=== PATIENT | female | born 1965 | race African-American/Black ===

== ENCOUNTER 2016-07-12 00:36 | Observation (INO) | payer OTHER, BC ==
[~2016-07-12] VITALS: Ht 162.6 cm; Wt 90.3 kg
--- NOTE | ~2016-07-12 | EKG ---
[address] [place] [address] ELECTROCARDIOGRAM REPORT Name: MATT CALIX Room #: 423-1 ADM IN M.R.#: [id number] Admission: 07/12/16 Attend Phys: Jose R Jansen MD Discharge: Date of : 69 Report #: [id number] THIS REPORT FOR: //name// [facility] ED Test Date: 2016-07-12 Test Time: 00:49:21 Pat Name: MATT CALIX Department: Room: [facility] Gender: F Occupational Therapy Assist: Oralia HELMS : 1965 Requested By: Naz Chavez Order Number: [id number] MD: Brett Cortez Measurements Intervals [place] Rate: 64 P: -17 [place]: 152 QRS: -11 QRSD: 81 T: 21 QT: 413 QTc: 426 Interpretive Statements Sinus rhythm Poor R wave progression Compared to ECG 04/05/2015 16:51:18 No significant change was found Electronically Signed On 07-12-2016 8:07:37 CDT by Brett Cortez [email or web address] <ELECTRONICALLY SIGNED> By: Brett Cortez MD, [facility] 07/12/16 0807 0049 0049 Brett Cortez MD, [facility] /EPI
--- NOTE | ~2016-07-12 | HC ---
[facility] [place] [address] CONSULTATION Name: MATT CALIX Abril Room #: 423-1 ADM IN .R.#: [id number] Admission: 07/12/16 Attend Phys: Jose R Jansen MD Discharge: Date of : 69 Report #: [id number] THIS REPORT FOR: //name// CC: [facility] physician/PCP Jose R Jansen DATE OF SERVICE: 07/13/2016 HISTORY OF PRESENT ILLNESS: This is a 51-year-old female patient without findings of coronary artery disease, presented to the Emergency Room with evaluation of chest discomfort. The patient was sitting and watching TV without any significant issues when she developed this retrosternal tightness sensation. It was not associated with dyspnea and diaphoresis and she describes it as being at least 5 or 6/10. The patient then was going to go lay down and when she stood up she became lightheaded, although did not have syncope or near syncope. She rested and her discomfort went away. Later, the discomfort returned and it did not resolve on its own. These again occurred at rest. The patient is not very active, but she does bring groceries in and does walk without any subsequent symptomatology. She stated that when she had this discomfort she tried to take and it did not affect her in anyway she performed. She presented to the Emergency Room, was given morphine, which made the symptoms worse according to her. She denies any prior exertional chest pain, pressure, tightness, heaviness, fullness or other symptomatology. She did not have any significant orthopnea or PND. No dependent or nondependent edema is described. She denies having any significant issues with hypertension, diabetes and is uncertain what her lipid profiles demonstrate. She denies any significant family history of premature cardiovascular disease. PAST MEDICAL HISTORY: Significant for: 1. Migraine headaches. 2. Gastroesophageal reflux disease. 3. History of seizures. PAST SURGICAL HISTORY: Tubal ligation. MEDICATIONS AT HOME: Meclizine, gabapentin, folic acid, Zyrtec, phenobarbital, vitamin D, probiotic, Keppra, has been on Lotrisone cream, Nexium, Ditropan, Paxil, Zoloft in the past. ALLERGIES: ASPIRIN, CODEINE, DOXYCYCLINE, IBUPROFEN, NAPROXEN, ALL NSAIDS, PENICILLIN, SULFA, TRIMETHOPRIM. SOCIAL HISTORY: The patient does not smoke, does not consume alcohol. Does not follow a particular exercise regimen or dietary restriction. Her UDAY heart score is 1. [address] [address] CONSULTATION Name: MATT CALIX Room #: [facility] IN [facility]#: [id number] Admission: 07/12/16 Attend Phys: Jose R Jansen MD Discharge: Date of : 69 Report #: [id number] Electrocardiogram normal sinus rhythm, nonspecific ST-T wave changes. Laboratory demonstrates a BUN and creatinine of 12 and 0.9 with a GFR of 81. H and H is 12.4 and 36.3 with a platelet count of 267,000. Radiologic demonstrates no acute process noted on chest x-ray. REVIEW OF SYSTEMS: Except for symptoms as previously mentioned and those commensurate with comorbid state, the 10-point review of system is negative. PHYSICAL EXAMINATION: GENERAL: A well-developed well-nourished female resting comfortably being in no acute distress. HEENT: Normocephalic, atraumatic. Pupils are equal, round, reactive to light and accommodation. Extraocular muscles are intact. Sclerae and conjunctivae are anicteric. NECK: JVD is normal. Carotid upstrokes are bilaterally symmetrical. No bruits are heard. No thyromegaly. No lymphadenopathy. LUNGS: Clear to auscultation. No wheezes, rhonchi or crackles. No CVA tenderness. CARDIAC: Demonstrates a regular rhythm. Normal first and second heart sounds. No ventricular or atrial gallops, no rubs noted. No murmurs. No lifts or heaves, PMI normal. ABDOMEN: Soft, nontender, nondistended. Normal bowel sounds. EXTREMITIES: Without cyanosis, clubbing or edema. Distal pulses are intact. DTR symmetrical. NEUROLOGIC: Cranial nerves 2-12 are grossly normal and symmetrical. PSYCHIATRIC: Alert, oriented with normal affect. SKIN: Warm and dry. IMPRESSION: 1. Atypical chest pain with very low risk of ischemic origin. 2. She has had negative enzymes and no significant abnormal EKG. In review of this, it is reasonable to proceed with outpatient perfusion scanning and evaluation. I discussed with the patient she is little bit concerned about this and we will defer to primary care. 3. Gastroesophageal reflux disease. She states this is different the one she had this before, but nonetheless she has not been on the medications recently. This may be a factor, may be an esophageal spasms etc. 4. History of migraine headaches. I doubt that this had anything to do with this and neither the seizures. I am not going to proceed with anything, only further evaluate from this aspect. <ELECTRONICALLY SIGNED> By: Josue Burciaga MD 07/14/16 1142 1946 [id number] Josue Burciaga MD /nt
[~2016-07-12 00:36] MED LIST: ANTIVERT25 MG PO; DETROL LA4 MG PO; DITROPAN XL10 M1 PO; FOLIC ACID1 MG; KEPPRA 500 MG500 M1 PO; LOTRISONE CREAM15 GM TP; MYRBETRIQ25 MG PO; NEURONTIN 400400 M1 PO; NEXIUM40 MG PO; NORCO 5-325 TA1 EACH PO; NORFLEX100 MG PO; PAXIL10 MG PO; PHENOBARBITAL15 MG PO; PROBIOTIC1 EAC1 PO; SKELAXIN 800 M800 M1 PO; TROSPIUM CHLORI60 MG PO; VITAMIN D3400 UNIT PO; ZOLOFT25 MG PO; ZYRTEC10 M2
[2016-07-12 00:39] VITALS: BP 123/75
[2016-07-12 01:18] LABS: ABSOLUTE NEUTROPHILS 2.1 thou/uL (1.4-8.2); BASOPHILS 1.2 % (0.0-2.0); HEMATOCRIT 36.3 % (37.0-47.0); HEMOGLOBIN 12.4 gm/dL (12.0-15.0); MANUAL DIFF NO; MCH 28.4 pg (26.0-34.0); MCHC 34.1 g/dL (28.0-37.0); MCV 83.3 fL (80.0-100.0); MONOCYTES 11.8 % (1.0-8.0); PLATELET COUNT 267 thou/uL (150-400); RBC 4.36 mil/uL (4.20-5.00); RDW 13.2 % (10.5-14.5); WBC 5.1 thou/uL (4.0-11.0)
[2016-07-12 01:24] LABS: ANION GAP 9 mmol/L (7-16); BUN 12 mg/dL (7-18); CALCIUM 9.5 mg/dL (8.5-10.1); CHLORIDE 107 mmol/L (98-107); CO2 27 mmol/L (21-32); CREATININE 0.9 mg/dL (0.6-1.0); GLUCOSE 95 mg/dL (74-106); POTASSIUM 3.2 mmol/L (3.5-5.1); SODIUM 143 mmol/L (136-145)
[2016-07-12 01:32] LABS: TROPONIN-I < 0.04 ng/mL (<0.04-0.07)
[2016-07-12 01:53] LABS: ALBUMIN 3.7 g/dL (3.4-5.0); ALKALINE PHOSPHATASE 131 U/L (46-116); DIRECT BILIRUBIN < 0.1 mg/dL (<0.1-0.3); SGOT 23 U/L (15-37); SGPT 31 U/L (30-65); TOTAL BILIRUBIN 0.2 mg/dL (<0.1-1.0); TOTAL PROTEIN 8.1 g/dL (6.4-8.2)
[2016-07-12 03:14] VITALS: BP 137/50
[2016-07-12 03:50] VITALS: BP 124/76
[2016-07-12 07:22] VITALS: BP 103/53
[2016-07-12 07:27] LABS: CHOLESTEROL 211 mg/dL (<200); HDL CHOLESTEROL 59 mg/dL (>40); LDL CHOLESTEROL 142 mg/dL (<100); TC:HDL 3.6 Ratio (Not establshd); TRIGLYCERIDE 53 mg/dL (<150); TROPONIN-I < 0.04 ng/mL (<0.04-0.07); VLDL 11 mg/dL (<40)
[2016-07-12 15:00] LABS: URINE BILIRUBIN NEGATIVE (Negative); URINE BLOOD NEGATIVE (Negative); URINE COLOR YELLOW; URINE GLUCOSE-RANDOM* NEGATIVE (Negative); URINE KETONES NEGATIVE (Negative); URINE LEUKOCYTES-REFLEX 1+ (Negative); URINE PROTEIN (DIPSTICK) NEGATIVE (Negative); URINE SPECIFIC GRAVITY 1.025 (1.003-1.035); URINE UROBILINOGEN 0.2 E.U./dl (0.2-1.0)
[2016-07-12 15:07] LABS: SQUAMOUS 0-3 Few /LPF (0-3)
[2016-07-12 15:08] LABS: CASTS None Seen /LPF (None Seen); CRYSTALS None Seen /LPF (None Seen); URINE RBC None Seen /HPF (0-2)
[2016-07-12 15:09] VITALS: BP 116/56
[2016-07-12 19:15] VITALS: BP 121/60
[2016-07-13 04:10] VITALS: BP 128/85
[2016-07-13 05:48] LABS: HEMATOCRIT 34.9 % (37.0-47.0); HEMOGLOBIN 11.4 gm/dL (12.0-15.0); MCH 27.7 pg (26.0-34.0); MCHC 32.7 g/dL (28.0-37.0); MCV 84.7 fL (80.0-100.0); RBC 4.12 mil/uL (4.20-5.00); RDW 13.4 % (10.5-14.5); WBC 4.6 thou/uL (4.0-11.0)
[2016-07-13 06:12] LABS: ALBUMIN 3.1 g/dL (3.4-5.0); CALCIUM 8.9 mg/dL (8.5-10.1); CREATININE 0.9 mg/dL (0.6-1.0); TOTAL BILIRUBIN 0.2 mg/dL (<0.1-1.0); TOTAL PROTEIN 7.2 g/dL (6.4-8.2)
[2016-07-13 08:08] VITALS: BP 99/55
[2016-07-13 15:09] VITALS: BP 111/70
[2016-07-13 20:00] VITALS: BP 113/61
[2016-07-14 04:00] VITALS: BP 120/88
[2016-07-14 07:55] VITALS: BP 120/72
[2016-07-14 15:20] VITALS: BP 119/54
[2016-07-14 20:15] VITALS: BP 120/55
[2016-07-15 04:02] VITALS: BP 102/49
[2016-07-15 07:30] VITALS: BP 94/59
[2016-07-15 16:19] VITALS: BP 94/59
[2016-07-15 16:48] VITALS: BP 94/59
== END 2016-07-15 17:06 | disposition home or self-care (01) ==
LOC: ER 00:36 → EROBS 02:40 → 4E 02:40
PROVIDERS: Emergency Medicine; Nurse Practitioner Family
DX: R07.9 Chest pain, unspecified (principal); R42 Dizziness and giddiness; E87.6 Hypokalemia; F41.9 Anxiety disorder, unspecified; R10.13 Epigastric pain
CPT/HCPCS: 10183

== ENCOUNTER 2016-09-05 03:07 | Emergency (ER) | payer OTHER, BC ==
[~2016-09-05] VITALS: Ht 160 cm; Wt 91.6 kg
== END 2016-09-05 04:00 | disposition home or self-care (01) ==
LOC: ER 03:07
DX: S40.862A Insect bite (nonvenomous) of left upper arm, initial encounter (principal); W57.XXXA Bitten or stung by nonvenomous insect and other nonvenomous arthropods, initial encounter; Y93.89 Activity, other specified; Y92.89 Other specified places as the place of occurrence of the external cause; Y99.8 Other external cause status; K21.9 Gastro-esophageal reflux disease without esophagitis; G43.909 Migraine, unspecified, not intractable, without status migrainosus; Z90.710 Acquired absence of both cervix and uterus; G40.909 Epilepsy, unspecified, not intractable, without status epilepticus; F41.9 Anxiety disorder, unspecified; Z88.6 Allergy status to analgesic agent; Z88.5 Allergy status to narcotic agent; Z88.2 Allergy status to sulfonamides; Z88.0 Allergy status to penicillin; Z88.1 Allergy status to other antibiotic agents

== ENCOUNTER 2017-04-29 17:09 | Emergency (ER) | payer OTHER ==
[~2017-04-29] VITALS: Ht 160 cm; Wt 96.6 kg
--- NOTE | ~2017-04-29 | EKG ---
[place] [address] [facility] [place] [address] ELECTROCARDIOGRAM REPORT Name: MATT CALIX [id number] Admission: 04/29/17 Attend Phys: Discharge: 04/29/17 Date of : 69 Report #: [id number] THIS REPORT FOR: //name// [facility] ED Test Date: 2017-04-29 Test Time: 17:14:39 Pat Name: MATT CALIX Department: Room: Gender: F Yarn Inspector: WHIT : 1965 Requested By: Jude Wall Order Number: [id number] MD: Brett Cortez Measurements Intervals [place] Rate: 62 P: -12 [place]: 139 QRS: -12 QRSD: 92 T: 17 QT: 419 QTc: 426 Interpretive Statements Sinus rhythm Anteroseptal infarct, old Compared to ECG 07/12/2016 00:49:21 No significant change was found Electronically Signed On 04-29-2017 19:31:52 CDT by Brett Cortez [email or web address] <ELECTRONICALLY SIGNED> By: Brett Cortez MD, [facility] 04/29/17 193 D: 03/1713 13 Brett Cortez MD, [facility] /EPI
[2017-04-29] MEDS ORDERED: CLOTRIMAZOLE 1%15 G1 TOP (17:35)
[2017-04-29] MEDS ORDERED: NEXIUM 40 MG CA40 M1 PO (17:36)
[2017-04-29] MEDS ORDERED: FLEXERIL PO (17:36)
[2017-04-29] MEDS ORDERED: ANTIVERT25 MG PO (17:37)
[2017-04-29] MEDS ORDERED: DITROPAN XL10 M1 PO (17:37)
[2017-04-29] MEDS ORDERED: TROSPIUM CHLORI60 MG PO (17:38)
[2017-04-29] MEDS ORDERED: DETROL LA4 MG PO (17:38)
[2017-04-29 17:53] LABS: ABSOLUTE NEUTROPHILS 3.3 thou/uL (1.4-8.2); BASOPHILS 0.6 % (0.0-2.0); EOSINOPHILS 1.8 % (0.0-3.0); HEMATOCRIT 36.2 % (37.0-47.0); HEMOGLOBIN 12.2 gm/dL (12.0-15.0); LYMPHOCYTES 40.8 % (24.0-44.0); MCHC 33.6 g/dL (28.0-37.0); MCV 83.2 fL (80.0-100.0); MONOCYTES 8.2 % (1.0-8.0); PLATELET COUNT 326 thou/uL (150-400); POLYS 48.6 % (36.0-66.0); RBC 4.34 mil/uL (4.20-5.00); RDW 14.2 % (10.5-14.5); WBC 6.7 thou/uL (4.0-11.0)
[2017-04-29 17:57] LABS: ANION GAP 3 mmol/L (7-16); BUN 14 mg/dL (7-18); CALCIUM 9.5 mg/dL (8.5-10.1); CHLORIDE 106 mmol/L (98-107); CO2 28 mmol/L (21-32); CREATININE 0.7 mg/dL (0.6-1.0); GLUCOSE 84 mg/dL (74-106); SODIUM 137 mmol/L (136-145)
[2017-04-29 18:06] LABS: TROPONIN-I < 0.04 ng/mL (<0.06)
[2017-04-29 18:31] VITALS: BP 140/75
[2017-09-25] MEDS ORDERED: METAXALONE800 MG PO (18:07)
[2017-09-25] MEDS ORDERED: ZANAFLEX2 M1 PO (21:14)
== END 2017-04-29 19:11 | disposition home or self-care (01) ==
LOC: ER 17:09
PROVIDERS: Emergency Medicine
DX: R07.89 Other chest pain (principal); K21.9 Gastro-esophageal reflux disease without esophagitis; G43.909 Migraine, unspecified, not intractable, without status migrainosus; F41.9 Anxiety disorder, unspecified; Z90.710 Acquired absence of both cervix and uterus; Z88.0 Allergy status to penicillin; Z88.1 Allergy status to other antibiotic agents; Z88.5 Allergy status to narcotic agent; Z88.6 Allergy status to analgesic agent; Z88.8 Allergy status to other drugs, medicaments and biological substances